=== PATIENT | female | born 1985 | race Caucasian/White ===

== ENCOUNTER 2016-09-30 08:00 | Outpatient (CLI) | payer OTHER | END 2016-09-30 23:59 | disposition home or self-care (01) | DX: Z36 Encounter for antenatal screening of mother (principal) ==

== ENCOUNTER 2016-10-16 07:30 | Outpatient (CLI) | payer OTHER | END 2016-10-16 07:31 | disposition home or self-care (01) | DX: Z36 Encounter for antenatal screening of mother (principal) ==

== ENCOUNTER 2016-11-09 07:37 | Outpatient (CLI) | payer OTHER ==
[2016-11-11 11:19] LABS: TEST RESULT REPORT (())
== END 2016-11-09 07:38 | disposition home or self-care (01) ==
LOC: LAB 07:37
PROVIDERS: ATTEND Obstetrics & Gynecology
DX: Z36 Encounter for antenatal screening of mother (principal)
CPT/HCPCS: 36415; 81599; 82105

== ENCOUNTER 2016-12-10 12:40 | Outpatient (CLI) | payer OTHER ==
--- NOTE | 2016-12-11 16:08 | Ultrasound Report ---
OB ULTRASOUND: 12/10/2016 CLINICAL INDICATION: anatomy. TECHNIQUE: Real-time scanning was performed with mortician supplies sales representative static images obtained. LAST MENSTRUAL PERIOD 07/25/2016 Clinical Age 19 weeks 5 days US Age 19 weeks 5 days EFW Hadlock 299 g EFW% Hadlock --- Heart Rate 130 bpm EDC 05/01/2017 US EDC 05/01/2017 BPD Hadlock 19 weeks 6 days; Mean mm 45.6 HC Hadlock 19 weeks 4 days; Mean mm 169.5 AC Hadlock 20 weeks 0 days; Mean mm 146.5 FL Hadlock 19 weeks 0 days; Mean mm 29.4 Presentation moving Placental Location posterior Cervical Length 3.7 cm Amniotic Fluid 13.4 cm FINDINGS: There is a single viable intrauterine gestation, in variable position. heart rate is 130 BPM. The placenta is posterior, without evidence of previa. Amniotic fluid volume is normal, with an RADHA of 13.4. By size, the fetus measures 19.7 weeks (19.7 weeks by LMP). The following anatomic structures were visualized and appear normal: The intracranial contents, including the ventricles and posterior fossa; the lips and orbits; the spine; the heart, including 4 chamber view and outflow tracts, and diaphragm; the abdominal contents, including the stomach, the bilateral kidneys, and urinary bladder, as well as a normal 3 vessel cord insertion; 4 limbs. No free fluid or adnexal lesion is appreciated. IMPRESSION: SINGLE VIABLE INTRAUTERINE GESTATION, WITH SIZE IN KEEPING WITH LMP DATING. NORMAL ANATOMIC SURVEY. MTDD
== END 2016-12-10 12:41 | disposition home or self-care (01) ==
LOC: DI 12:40
PROVIDERS: ATTEND Obstetrics & Gynecology
DX: Z36 Encounter for antenatal screening of mother (principal)
CPT/HCPCS: 76811

== ENCOUNTER 2017-01-13 15:01 | Outpatient (CLI) | payer OTHER ==
[2017-01-13 15:18] VITALS: BP 113/58
[2017-01-13] MEDS: LACTATED RINGERS 1,000 ML IV SCH ×2 (15:25→16:24)
== END 2017-01-13 17:15 | disposition home or self-care (01) ==
LOC: WFO 15:01 → OB 15:01 → WFO 17:15
PROVIDERS: ATTEND Obstetrics & Gynecology
DX: O21.0 Mild hyperemesis gravidarum (principal); Z3A.00 Weeks of gestation of pregnancy not specified
CPT/HCPCS: 96360; 96361; 99212; J7120

== ENCOUNTER 2017-01-23 08:50 | Outpatient (CLI) | payer OTHER ==
[2017-01-23 10:57] LABS: HCT - HEMATOCRIT 32.7 % (37.0-47.0); MEAN CORPUSCULAR HEMOGLOBIN 30.2 pg (27.0-31.0); MEAN CORPUSCULAR HGB CONC 33.5 g/dL (32.0-36.0); MEAN CORPUSCULAR VOLUME 90.1 fL (81.0-99.0); MEAN PLATELET VOLUME 7.9 fL (7.9-10.8); RED BLOOD COUNT 3.63 10^6/uL (4.20-5.40); RED CELL DISTRIBUTION WIDTH 12.5 % (12.0-15.0)
== END 2017-01-23 08:51 | disposition home or self-care (01) ==
LOC: LAB 08:50
PROVIDERS: ATTEND Obstetrics & Gynecology
DX: Z36 Encounter for antenatal screening of mother (principal)
CPT/HCPCS: 36415; 82950; 86850

== ENCOUNTER 2017-02-06 07:04 | Outpatient (CLI) | payer OTHER ==
[2017-02-06 07:55] LABS: GTT GLUCOSE,FASTING 91 mg/dL (70-100)
== END 2017-02-06 07:05 | disposition home or self-care (01) ==
LOC: LAB 07:04
PROVIDERS: ATTEND Obstetrics & Gynecology
DX: R73.02 Impaired glucose tolerance (oral) (principal)
CPT/HCPCS: 36415; 80050; 80061; 82951

== ENCOUNTER 2017-03-15 07:18 | Emergency (ER) | payer OTHER ==
[2017-03-15] MEDS ORDERED: SODIUM CHLORIDE 0.9% 1,000 ML IV ONE (07:28)
--- NOTE | 2017-03-15 07:40 | ED Physician Documentation ---
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 denies: Generalized weakness, Headache Endocrine: denies: Easy bruising / bleeding Immunocompromised: denies: Immunocompromised PD PAST MEDICAL HISTORY - Past Surgical History Past Surgical History: No - Present Medications Home Medications: Ambulatory Orders Medication Instructions Recorded Confirmed No Known Home Medications [No 10/29/14 10/29/14 Known Home Medications] - Allergies Allergies/Adverse Reactions: Allergies Allergy/AdvReac Type Severity Reaction Status Date / Time erythromycin base Allergy Unknown Verified 10/29/14 13:33 Penicillins Allergy Unknown Verified 10/29/14 13:33 - Social History Does the pt smoke?: No Smoking Status: Never smoker Does the pt drink ETOH?: No Does the pt have substance abuse?: No - Immunizations Immunizations are current?: No PD ED PE NORMAL - Vitals Vital signs reviewed: Yes (normal BP) - General General: Alert and oriented X 3 - HEENT HEENT: PERRL - Neck Neck: Supple, no meningeal sign - Cardiac Cardiac: RRR - Respiratory Respiratory: No respiratory distress, Clear bilaterally - Abdomen Abdomen: Soft, Non tender - Derm Derm: Normal color - Extremities Extremities: No deformity, No edema, No calf tenderness / cord - Neuro Neuro: Alert and oriented X 3, popcorn attendant 2-12 intact, No motor deficit, Normal speech - Psych Psych: Normal mood Results - Vitals Vitals: Vital Signs - 24 hr 03/15/17 07:20 Temperature 36.7 C Heart Rate 88 Respiratory 16 Rate Blood Pressure 126/77 O2 Saturation 100 Oxygen O2 Source Room air - EKG (time done) 0751 Rate: Rate (enter#) (97) Rhythm: NSR [place]: Normal Intervals: Normal CO QRS: Normal Ischemia: Normal ST segments - Labs Labs: Laboratory Tests 03/15/17 03/15/17 03/15/17 07:26 07:40 07:40 WBC 10.2 RBC 3.60 L Hgb 9.8 L Hct 29.3 L MCV 81.4 MCH 27.2 MCHC 33.5 RDW 13.2 Plt Count 266 MPV 8.8 Neut # 6.7 H Lymph # 2.4 [place] # 0.9 Eos # 0.1 Baso # 0.0 Absolute Nucleated RBC 0.00 Nucleated RBCs 0.0 Sodium 134 L Potassium 3.2 L Chloride 104 Carbon Dioxide 21 Anion Gap 9.0 BUN 7 Creatinine 0.5 Estimated GFR (MDRD) 142 Glucose 101 H POC Whole Bld Glucose 109 H Calcium 8.7 Total Bilirubin 0.3 AST 25 ALT 17 Alkaline Phosphatase 71 Total Protein 6.2 L Albumin 2.7 L Globulin 3.5 Albumin/Globulin Ratio 0.8 L Lipase 43 Urine Color Urine Clarity Urine pH Ur Specific [place] Urine Protein Urine Glucose (UA) Urine Ketones Urine Occult Blood Urine Nitrite Urine Bilirubin Urine Urobilinogen Ur Leukocyte Esterase Urine RBC Urine WBC Ur Squamous Epith Cells Urine Bacteria Ur Microscopic Review Urine Culture Comments 03/15/17 08:45 WBC RBC Hgb Hct MCV MCH MCHC RDW Plt Count MPV Neut # Lymph # [place] # Eos # Baso # Absolute Nucleated RBC Nucleated RBCs Sodium Potassium Chloride Carbon Dioxide Anion Gap BUN Creatinine Estimated GFR (MDRD) Glucose POC Whole Bld Glucose Calcium Total Bilirubin AST ALT Alkaline Phosphatase Total Protein Albumin Globulin Albumin/Globulin Ratio Lipase Urine Color YELLOW Urine Clarity HAZY Urine pH 7.5 Ur Specific [place] 1.020 Urine Protein TRACE Urine Glucose (UA) NEGATIVE Urine Ketones NEGATIVE Urine Occult Blood NEGATIVE Urine Nitrite NEGATIVE Urine Bilirubin NEGATIVE Urine Urobilinogen 0.2 (NORMAL) Ur Leukocyte Esterase NEGATIVE Urine RBC 0-5 Urine WBC 0-3 Ur Squamous Epith Cells MANY Squamous H Urine Bacteria Many H Ur Microscopic Review INDICATED Urine Culture Comments NOT INDICATED PD MEDICAL DECISION MAKING - ED course ED course: NSR on EKG and tele anemia wnl for third trimester slightly low k and Na repleted but unlikely to cause sx suspect pt was orthostatic after being on her feet for work all night with volume shifts of will rehydrate and if feels better rogers to dc FHR 148 no abd pain ctx bleeding will d/w OB to see if wants pt to go to L&D for eval as well Departure - Departure Disposition: 01 Home, Self Care Clinical Impression: Near syncope, Third trimester Condition: Good Instructions: ED Near Syncope Unkn Follow-Up: Abhi Hanson MD [Provider Admit Priv/Credential] - Comments: Your EKG and heart monitor show a normal rhythm Your labs were fine except for anemia consistent with third trimester and a slightly low potassium and sodium which we replaced. I do not think you have a urine infection but we will call you if the culture is positive I suspect you felt faint due to fluid shift of combined with being on your feel all night Given the reassuring work up, I think it is fine for you to go home. Please rest and drink plenty of fluids Follow up with your OB early next week. Return to the ER if worse
[2017-03-15 07:52] LABS: BASOPHILS % (AUTO) 0.3 %; EOSINOPHILS # (AUTO) 0.1 10^3/uL (0.0-0.7); EOSINOPHILS % (AUTO) 0.9 %; HCT - HEMATOCRIT 29.3 % (37.0-47.0); HGB - HEMOGLOBIN 9.8 g/dL (12.0-16.0); LYMPHOCYTES # (AUTO) 2.4 10^3/uL (1.5-3.5); LYMPHOCYTES % (AUTO) 23.9 %; MEAN CORPUSCULAR HEMOGLOBIN 27.2 pg (27.0-31.0); MEAN CORPUSCULAR HGB CONC 33.5 g/dL (32.0-36.0); MEAN CORPUSCULAR VOLUME 81.4 fL (81.0-99.0); MEAN PLATELET VOLUME 8.8 fL (7.9-10.8); MONOCYTES # (AUTO) 0.9 10^3/uL (0.0-1.0); MONOCYTES % (AUTO) 8.9 %; NEUTROPHILS # (AUTO) 6.7 10^3/uL (1.5-6.6); RED CELL DISTRIBUTION WIDTH 13.2 % (12.0-15.0); UNCORRECTED WHITE BLOOD COUNT 10.2 x10^3/uL; WHITE BLOOD COUNT 10.2 x10^3/uL (4.8-10.8)
[2017-03-15 08:08] LABS: ALBUMIN/GLOBULIN RATIO 0.8 (1.0-2.2); BILIRUBIN,TOTAL 0.3 mg/dL (0.2-1.0); CALCIUM 8.7 mg/dL (8.5-10.3); CREATININE 0.5 mg/dL (0.4-1.0); POTASSIUM 3.2 mmol/L (3.5-5.0); TOTAL PROTEIN 6.2 g/dL (6.7-8.2)
[2017-03-15 08:55] LABS: BILIRUBIN,URINE NEGATIVE (NEGATIVE); PH,URINE 7.5 PH (5.0-7.5)
[2017-03-15 08:57] LABS: UA w/ MICROSCOPIC CHARGE YES
[2017-03-15 09:05] LABS: UR CULTURE IF IND NOT INDICATED; WBC,URINE 0-3 /HPF (0-5)
[2017-03-15] MEDS ORDERED: POTASSIUM BICARB 25 MEQ TABLET PO STA (09:10)
[2017-03-15] MEDS ORDERED: POTASSIUM BICARB 25 MEQ TABLET PO ONE (09:17)
[2017-03-15 09:39] VITALS: BP 122/79
== END 2017-03-15 09:39 | disposition home or self-care (01) ==
LOC: ED 07:18
DX: O99.89 Other specified diseases and conditions complicating pregnancy, childbirth and the puerperium (principal); R55 Syncope and collapse; O99.013 Anemia complicating pregnancy, third trimester; D64.9 Anemia, unspecified; O99.283 Endocrine, nutritional and metabolic diseases complicating pregnancy, third trimester; E87.6 Hypokalemia; E87.1 Hypo-osmolality and hyponatremia; Z3A.34 34 weeks gestation of pregnancy
CPT/HCPCS: 36415; 80053; 81001; 83690; 85025; 93005; 96360; 99284; A9270; 81003; 87086

== ENCOUNTER 2017-03-31 16:02 | Outpatient (CLI) | payer OTHER | END 2017-03-31 16:03 | disposition home or self-care (01) | LOC: LAB.R 16:02 | PROVIDERS: ATTEND Obstetrics & Gynecology | DX: Z36.9 Encounter for antenatal screening, unspecified (principal) | CPT/HCPCS: 87081 ==

== ENCOUNTER 2017-04-08 14:39 | Outpatient (CLI) | payer OTHER ==
--- NOTE | 2017-04-09 10:12 | Ultrasound Report ---
OB FOLLOWUP: 04/08/2017 CLINICAL INDICATION: Size larger than dates. COMPARISON: 12/10/2016. TECHNIQUE: Real-time scanning was performed with member service representative static images obtained. LAST MENSTRUAL PERIOD 07/25/2016 Clinical Age 36 weeks 5 days US Age 38 weeks 0 days EFW Hadlock 3660 grams EFW% Hadlock 90% Heart Rate 135 bpm EDC 05/01/2017 US EDC 04/22/2017 BPD Hadlock 38 weeks 6 days; Mean mm 95.3 HC Hadlock OOR; Mean mm 360.0 AC Hadlock 39 weeks 5 days; Mean mm 358.4 FL Hadlock 35 weeks 2 days; Mean mm 68.8 Presentation cephalic Placental Location posterior Cervical Length 4 cm Amniotic Fluid 27.4 cm FINDINGS: There is a single viable intrauterine gestation, in cephalic presentation. heart rate is 135 BPM. The placenta is posterior, without evidence of previa. Amniotic fluid volume is elevated, with an RADHA of 27.4 ( 98th percentile). By size, the fetus measures 38 weeks 0 days, but the head circumference is out of range for software, measuring 36 cm. Estimated weight by Hadlock method is 3660 grams, 90th percentile. The gestational age by LMP is 36 weeks 5 days. No free fluid or adnexal lesion is appreciated. IMPRESSION: SINGLE VIABLE INTRAUTERINE GESTATION. BY SIZE, THE FETUS DATES LARGER THAN 38 WEEKS 0 DAYS, THE HEAD CIRCUMFERENCE WAS OUT OF RANGE FOR THE SOFTWARE PACKAGE. POLYHYDRAMNIOS. MTDD
== END 2017-04-08 14:40 | disposition home or self-care (01) ==
LOC: DI 14:39
PROVIDERS: ATTEND Obstetrics & Gynecology
DX: Z36.2 Encounter for other antenatal screening follow-up (principal)
CPT/HCPCS: 76816

== ENCOUNTER 2017-04-11 07:37 | Outpatient (CLI) | payer OTHER ==
[2017-04-11 07:52] VITALS: BP 123/70
== END 2017-04-11 08:26 | disposition home or self-care (01) ==
LOC: WFO 07:37 → FBP 07:38 → WFO 08:26
PROVIDERS: ATTEND Obstetrics & Gynecology
DX: O40.3XX0 Polyhydramnios, third trimester, not applicable or unspecified (principal); Z3A.37 37 weeks gestation of pregnancy
CPT/HCPCS: 59025

== ENCOUNTER 2017-04-21 11:13 | Outpatient (CLI) | payer OTHER ==
[2017-04-21 11:57] LABS: BASOPHILS % (AUTO) 0.3 %; EOSINOPHILS # (AUTO) 0.1 10^3/uL (0.0-0.7); EOSINOPHILS % (AUTO) 0.6 %; HCT - HEMATOCRIT 28.6 % (37.0-47.0); HGB - HEMOGLOBIN 9.3 g/dL (12.0-16.0); LYMPHOCYTES # (AUTO) 2.7 10^3/uL (1.5-3.5); LYMPHOCYTES % (AUTO) 28.1 %; MEAN CORPUSCULAR HEMOGLOBIN 24.5 pg (27.0-31.0); MEAN CORPUSCULAR HGB CONC 32.5 g/dL (32.0-36.0); MEAN CORPUSCULAR VOLUME 75.4 fL (81.0-99.0); MONOCYTES # (AUTO) 0.8 10^3/uL (0.0-1.0); NEUTROPHILS # (AUTO) 6.2 10^3/uL (1.5-6.6); RED CELL DISTRIBUTION WIDTH 15.6 % (12.0-15.0); UNCORRECTED WHITE BLOOD COUNT 9.8 x10^3/uL; WHITE BLOOD COUNT 9.8 x10^3/uL (4.8-10.8)
== END 2017-04-21 11:14 | disposition home or self-care (01) ==
LOC: LAB 11:13
PROVIDERS: ATTEND Obstetrics & Gynecology
DX: Z01.812 Encounter for preprocedural laboratory examination (principal); O34.219 Maternal care for unspecified type scar from previous cesarean delivery; Z3A.00 Weeks of gestation of pregnancy not specified
CPT/HCPCS: 36415; 85025; 86850; 86900; 86901

== ENCOUNTER 2017-04-22 05:25 | Inpatient (IN) | payer OTHER ==
--- NOTE | 2017-04-21 17:47 | PREOP HISTORY & PHYSICAL ---
DATE OF ADMISSION/SURGERY: 04/22/2017 IDENTIFICATION: The patient is a 31-year-old G5, P2, SAB 2 female, whose due date is noted to be 29 April 2017. This was confirmed with a 9-week ultrasound. HISTORY OF PRESENT ILLNESS: The patient presents preop for a repeat section. She has had 2 previous sections performed in the past and is requesting a third. She is also requesting tubal ligation at this time. I have discussed the operations of Filshie clips versus salpingectomy. At this particular time, we are planning to do a salpingectomy. Her course has been unremarkable. She has had some difficulty with morning sickness, as well as some heartburn which has been treated with Zofran, as well as Zantac. She notes good motion. Denies contractions or rupture of membranes at this time. Her labs show her to be O-positive. She is rubella immune. RPR, hepatitis B, and HIV are negative. Her 50-gram Glucola was elevated at 154. However, her 3-hour GTT was noted to be normal. PAST MEDICAL HISTORY: Positive for having had hepatitis A and B in the past. SURGICAL HISTORY: Positive for 2 sections. ALLERGIES: 1. ERYTHROMYCIN. 2. PENICILLIN. CURRENT MEDICATIONS: vitamin tablets. HABITS: The patient denies the use of alcohol, tobacco, or street or addictive drugs. SOCIAL HISTORY: The patient is and lives with her spouse, as well as children. 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 FAMILY HISTORY: Positive for lung cancer, diabetes, depression, hypertension, and rheumatoid arthritis, as well as CVA. PHYSICAL EXAMINATION: GENERAL: The patient is a well-developed, well-nourished white female. At this time, she is in no acute distress. VITAL SIGNS: Her blood pressure on her appointment today was noted to be 116/ 80. She has had a 23-pound weight gain during the . HEENT: Pupils are equal and round. Extraocular muscles are intact. NECK: Thyroid is not palpably enlarged. HEART: Regular rate and rhythm, without murmurs. LUNGS: Carbone are clear, without rales or wheezes. ABDOMEN: Fundal height was noted to be 42 cm. EXTREMITIES: She has no evidence of any cyanosis. IMPRESSION: 1. A 31-year-old G5, P2 female, currently at term. 2. Previous hepatitis A and B. 3. Previous section x2. 4. Undesired fertility. PLAN: We will perform a repeat section. The risks and benefits have been explained to the patient including those, but not limited to, bleeding, infection, and injury to pelvic organs, which include the uterus, tubes, ovaries , bowel, bladder, and ureters. She is aware of the potential for DVT and PE, as well as postoperative adhesions, which could cause pain, bowel obstruction, and infertility. At this particular time, she is also requesting a tubal ligation. She is aware of a failure rate of roughly 3 to 10/999. She was also informed that she may change her mind at any time. JOB #: [id number] EXT JOB #:[id number] [id number]
[2017-04-22] MEDS ORDERED: LACTATED RINGERS 1,000 ML IV ONE ×4 (05:56→08:30)
[2017-04-22] MEDS ORDERED: SODIUM CHLORIDE FLUSH 0.9% 10 ML SYRINGE IVP ONE (05:57)
[2017-04-22] MEDS ORDERED: ceFAZolin 2 GM/50 ML 2 GM/50 ML BAG IV SCH (06:45)
[2017-04-22] MEDS ORDERED: ONDANSETRON 4 MG/2 ML VIAL IVP PRN (06:48)
[2017-04-22] MEDS ORDERED: fentaNYL 100 MCG/2 ML VIAL IVP ONE (08:50)
[2017-04-22] MEDS ORDERED: ePHEDrine 50 MG/ML VIAL IVP ONE (08:50)
[2017-04-22] MEDS ORDERED: OXYTOCIN 10 UNIT/ML VIAL IV ONE (08:50)
[2017-04-22] MEDS ORDERED: KETOROLAC 30 MG/ML VIAL IVP ONE (08:50)
[2017-04-22] MEDS ORDERED: ceFAZolin 2 GM/50 ML BAG IV ONE (08:50)
[2017-04-22] MEDS ORDERED: diphenhydrAMINE 25 MG CAPSULE PO PRN (09:19)
[2017-04-22] MEDS ORDERED: oxyCODONE 5 MG TABLET PO PRN (09:19)
[2017-04-22] MEDS ORDERED: ONDANSETRON ODT 4 MG TABLET TL PRN (09:19)
[2017-04-22] MEDS ORDERED: SODIUM CHLORIDE FLUSH 0.9% 10 ML SYRINGE IVP PRN (09:19)
--- NOTE | 2017-04-22 09:32 | OPERATIVE REPORT ---
Operative Report - General Admit Date: 04/22/17 Procedure Date: 04/22/17 Planned Procedure: Repeat LTC/S Pre-Op Diagnosis: 39 weeks, undesired fertility Procedure Performed: 1. Repeat LTC/S 2. bilateral salpingectomy Post Op Diagnosis: Same - Procedure Note Primary Surgeon: Abhi Hanson MD, FACOG Secondary Surgeon: Jess Sanchez DO, FACOG Anesthesia Provider: Costa Cowan MD Anesthesia Technique: Epidural Pathology: Bilateral Tubes Drain/Tube Type: Other (Wound Vac) Complications: Pre OP Anemia
[2017-04-22] MEDS ORDERED: OXYTOCIN/SODIUM CHLORIDE 250 ML IV ONE (09:45)
[2017-04-22] MEDS ORDERED: LACTATED RINGERS 1,000 ML IV SCH (10:00)
[2017-04-22] MEDS: ACETAMINOPHEN 500 MG TABLET PO SCH ×2 (10:13→17:40)
--- NOTE | 2017-04-22 10:20 | OPERATIVE REPORT ---
DATE OF SURGERY: 04/22/2017 00:00:00 PREOPERATIVE DIAGNOSES 1. 39 weeks' gestation. 2. Previous section. 3. Undesired fertility. POSTOPERATIVE DIAGNOSES 1. 39 weeks' gestation. 2. Previous section. 3. Undesired fertility. NAME OF PROCEDURE: Repeat low transverse section with bilateral salpingectomy. SURGEON: Abhi Hanson MD. FUSE COILER: Dr. Jess Sanchez. ANESTHESIA: Costa Cowan MD, spinal anesthetic. ESTIMATED BLOOD LOSS: 600 mL. FINDINGS: Normal uterus, tubes, ovaries. PROCEDURE: Following adequate spinal anesthesia, the patient was placed in the supine position with a roll under the right hip. At this point, she was prepped and draped in the usual fashion. A Valencia catheter was placed under sterile conditions. A timeout was then performed, of which any concerns were identified , which include those of preoperative anemia. This procedure was then commenced at this time, following checking to make sure that good anesthetic level was obtained. A Pfannenstiel incision was carried down through the old scar and that is very light. It was carried down to the fascia. The fascia was incised transversely. Then, using both blunt and sharp dissection, it was freed from the rectus abdominis. The rectus was then split along the midline, and the peritoneum was entered high. Care was taken to avoid any injury to bowel or bladder at this time. The incision was carried inferior utilizing Metzenbaum scissors. A bladder retractor was placed, following which a bladder flap was developed using Metzenbaum scissors and blunt dissection. A low transverse incision was carried out through the lower portion of the uterus. This was carried down to the membranes. The membranes were then pierced and copious amounts of clear amniotic fluid was encountered. The incision was carried laterally using bandage scissors. Care was taken to avoid injury to the infant. Finger spread technique was used at the ends of the incision. The head of the was lifted out of the pelvis and delivered. The oropharynx was bulb suctioned. The remainder of the infant was delivered without difficulty. The cord was doubly clamped, divided, and the infant was given to the director shopper marketing who was standing by. Cord blood samples were obtained. Following this, the placenta was manually removed. The uterus was exteriorized, wrapped in a moist lap, and cleansed in the internal portion with a dry lap. The incision was closed using a running locking suture of #0 Vicryl with an imbricating layer of #0 Vicryl. Good hemostasis was observed. At this point, the blood loss was tallied, noted to be 600 mL. There was a copious amount of amniotic fluid, which was also encountered. The cul-de-sac was irrigated and no further bleeding was noted. The right fallopian tube was grasped at the fimbriated end and then a LigaSure was used to transect the mesosalpinx. Care was taken to place this as close to the tube as possible to avoid any injury to the ovarian vessels. This was carried all the way to the cornu and the entire fallopian tube was excised. This was inspected for bleeding. None was noted. The right fallopian tube was grasped at the fimbriated end, then once again the LigaSure was used to transect the mesosalpinx. Once again, care was taken to avoid any injury to the ovarian vessels. This was carried down all the way to the cornu of the uterus, at which time the fallopian tube was removed in its entirety. Both incision sites were inspected, and no bleeding was noted. The uterus was then delivered back in the abdominal cavity and once again there was no evidence of any bleeding. The cul-de-sacs were irrigated and no further bleeding was noted. The bladder flap was inspected for bleeding, none was noted. At this point, the patient was having some difficulty with adequate anesthesia, so the peritoneum was closed utilizing 2-0 Vicryl. The rectus was reapproximated with 2-0 Vicryl. The rectus muscles were inspected, no bleeding was noted, so the fascia was closed using looped PDS. Subcutaneous tissue was irrigated, and electrocautery was used for hemostasis. The subcutaneous tissue was closed utilizing 2-0 Vicryl. The incision itself was closed using Monocryl subcuticular with Mastisol and Steri-Strips being applied. The incision was noted to have some oozing, so at this point, it was decided to utilize a wound VAC. This was applied without difficulty. The uterus was expressed at the end of the procedure. The patient tolerated the procedure well and was taken to recovery in stable condition. Sponge and needle counts were correct. JOB #: [id number] EXT JOB #:[id number] LG
[2017-04-22] MEDS ORDERED: FERRIC GLUCONATE 125 MG in SODIUM CHLORIDE 0.9% 100ML 100 ML IV SCH (10:30)
[2017-04-22] MEDS: IBUPROFEN 800 MG TABLET PO SCH ×2 (10:33→16:16)
[2017-04-22] MEDS: oxyCODONE 5 MG TABLET PO PRN ×3 (12:53→21:48)
[2017-04-22] MEDS: KETOROLAC 30 MG/ML VIAL IV SCH ×2 (14:20→20:26)
[2017-04-22] MEDS: SIMETHICONE CHEW 80 MG TABLET PO SCH ×2 (14:41→21:49)
[2017-04-22] MEDS: SODIUM CHLORIDE FLUSH 0.9% 10 ML SYRINGE IVP SCH ×2 (14:43→20:27)
[2017-04-22 17:59] LABS: BASOPHILS % (AUTO) 0.3 %; EOSINOPHILS % (AUTO) 0.1 %; HCT - HEMATOCRIT 28.2 % (37.0-47.0); HGB - HEMOGLOBIN 8.8 g/dL (12.0-16.0); LYMPHOCYTES # (AUTO) 2.2 10^3/uL (1.5-3.5); LYMPHOCYTES % (AUTO) 19.5 %; MEAN CORPUSCULAR HEMOGLOBIN 23.9 pg (27.0-31.0); MEAN CORPUSCULAR HGB CONC 31.2 g/dL (32.0-36.0); MEAN CORPUSCULAR VOLUME 76.5 fL (81.0-99.0); MEAN PLATELET VOLUME 8.7 fL (7.9-10.8); MONOCYTES # (AUTO) 0.9 10^3/uL (0.0-1.0); NEUTROPHILS # (AUTO) 8.2 10^3/uL (1.5-6.6); NEUTROPHILS % (AUTO) 72.1 %; RED BLOOD COUNT 3.68 10^6/uL (4.20-5.40); RED CELL DISTRIBUTION WIDTH 15.6 % (12.0-15.0); UNCORRECTED WHITE BLOOD COUNT 11.4 x10^3/uL; WHITE BLOOD COUNT 11.4 x10^3/uL (4.8-10.8)
[2017-04-22] MEDS: DOCUSATE SODIUM 100 MG CAPSULE PO SCH (20:27)
[2017-04-23] MEDS: oxyCODONE 5 MG TABLET PO PRN ×6 (01:30→22:01)
[2017-04-23] MEDS: ACETAMINOPHEN 500 MG TABLET PO SCH ×3 (01:31→20:47)
[2017-04-23] MEDS: KETOROLAC 30 MG/ML VIAL IV SCH ×2 (02:59→10:01)
[2017-04-23] MEDS: SIMETHICONE CHEW 80 MG TABLET PO SCH ×3 (05:56→20:47)
--- NOTE | 2017-04-23 08:20 | PROVIDER PROGRESS NOTE ---
Subjective - General Admit Date: 04/22/17 Procedure Date: 04/22/17 Post Op Days: 1 Procedure Performed: RLTC/S with bilateral salpingectomy - Review of Systems Wound/Incisions: positive: Dressing dry and intact, No drainage Drain Type: Wound Vac General: positive: No symptoms. negative: Fever Pulmonary: positive: No symptoms Cardiovascular: positive: No symptoms Gastrointestinal: positive: No symptoms, Flatus Objective - Patient Data Reviewed Vital Signs: Yes Vital Signs: Vital Signs x48h Temp Pulse Resp BP Pulse Ox 04/23/17 05:18 36.7 C 73 18 109/66 95 04/23/17 01:41 36.5 C 80 16 108/67 96 Weight: Weight 04/21/17 04/22/17 04/23/17 23:59 23:59 23:59 Weight (kg) 83.461 kg Intake & Output: Intake and Output Totals x24h 04/21/17 04/22/17 04/23/17 23:59 23:59 23:59 Intake Total 2660 900 Output Total 1625 725 Balance 1035 175 - Lab Results Lab Results: 04/22/17 17:52 Other Lab Results: Lab Results x24hrs 04/22/17 04/21/17 Range/Units 17:52 11:45 WBC 11.4 H (4.8-10.8) x10^3/uL RBC 3.68 L (4.20-5.40) 10^6/uL Hgb 8.8 L (12.0-16.0) g/dL Hct 28.2 L (37.0-47.0) % MCV 76.5 L (81.0-99.0) fL MCH 23.9 L (27.0-31.0) pg MCHC 31.2 L (32.0-36.0) g/dL RDW 15.6 H (12.0-15.0) % Plt Count 222 (130-450) 10^3/uL MPV 8.7 (7.9-10.8) fL Neut # 8.2 H (1.5-6.6) 10^3/uL Lymph # 2.2 (1.5-3.5) 10^3/uL [place] # 0.9 (0.0-1.0) 10^3/uL Eos # 0.0 (0.0-0.7) 10^3/uL Baso # 0.0 (0.0-0.1) 10^3/uL Absolute Nucleated RBC 0.00 x10^3/uL Nucleated RBC % 0.0 /100WBC Blood Type Cancelled Antibody Screen Cancelled Crossmatch IS Only See Detail - Current Medications Current Medications: Current Medications Generic Name Dose Route Start Last Admin Trade Name Freq PRN Reason Stop Dose Admin Acetaminophen 1,000 mg 04/22/17 10:00 04/23/17 01:31 Tylenol PO 1,000 mg Q8H TRIPP Administration Docusate Sodium 100 mg 04/22/17 21:00 04/22/17 20:27 Colace 100mg Capsule PO 100 mg BID TRIPP Administration Lactated Ringer's 1,000 mls @ 100 mls/hr 04/22/17 10:00 04/22/17 10:34 Lr IV Not Given .Q10H TRIPP Ibuprofen 800 mg 04/22/17 10:00 04/22/17 16:16 Motrin PO Not Given Q6H TRIPP Ketorolac Tromethamine 30 mg 04/23/17 03:00 04/23/17 02:59 Toradol Inj IV 04/23/17 09:01 30 mg Q6H TRIPP Administration Ondansetron HCl 4 mg 04/22/17 06:48 04/22/17 06:58 Zofran Inj IVP 4 mg Q6HR PRN Administration Nausea / Vomiting Oxycodone HCl 10 mg 04/22/17 12:49 04/23/17 05:57 Roxicodone PO 5 mg Q4HR PRN Administration PAIN Simethicone 80 mg 04/22/17 14:00 04/23/17 05:56 Mylicon PO 80 mg TID TRIPP Administration Sodium Chloride 10 ml 04/22/17 09:19 04/23/17 03:00 Normal Saline Flush 0.9% IVP 10 ml PRN PRN Administration NEEDED PER PROVIDER ORDERS Sodium Chloride 10 ml 04/22/17 14:00 04/22/17 20:27 Normal Saline Flush 0.9% IVP 10 ml Q8HR TRIPP Administration - Physical Exam Wound/Incisions: positive: Dressing dry and intact, No drainage General Appearance: positive: No acute distress (Pain is 0/10, with Motion 7/ 10. pt notes good pain control), Alert Respiratory: positive: Chest non-tender, No respiratory distress, Breath sounds nml Cardiovascular: positive: Regular rate & rhythm, No murmur Abdomen: positive: Non-tender, Nml bowel sounds, Mass (U-1) Back: negative: CVA tenderness (R), CVA tenderness (L) Extremities: positive: Non-tender. negative: Calf tenderness, Mario's sign/ cords Neurologic/Psychiatric: positive: Oriented x3 Impression/Plan - Problem List Problem List: doing well anticipate discharge tomorrow.
[2017-04-23] MEDS: SODIUM CHLORIDE FLUSH 0.9% 10 ML SYRINGE IVP SCH (10:02)
[2017-04-23] MEDS: DOCUSATE SODIUM 100 MG CAPSULE PO SCH ×2 (10:05→20:47)
[2017-04-23] MEDS: IBUPROFEN 800 MG TABLET PO SCH ×3 (16:22→22:02)
[2017-04-24] MEDS: oxyCODONE 5 MG TABLET PO PRN ×3 (02:22→11:24)
[2017-04-24] MEDS: IBUPROFEN 800 MG TABLET PO SCH ×2 (05:43→11:24)
[2017-04-24] MEDS: ACETAMINOPHEN 500 MG TABLET PO SCH (05:43)
[2017-04-24 09:12] VITALS: BP 117/67
[2017-04-24] MEDS: DOCUSATE SODIUM 100 MG CAPSULE PO SCH (09:15)
[2017-04-24] MEDS: SIMETHICONE CHEW 80 MG TABLET PO SCH (09:15)
--- NOTE | 2017-04-24 10:10 | PROVIDER PROGRESS NOTE ---
Subjective - General Admit Date: 04/22/17 Procedure Date: 04/22/17 Post Op Days: 2 Procedure Performed: RLTC/S with bilateral salpingectomy - Review of Systems Wound/Incisions: positive: Dressing dry and intact, No drainage Drain Type: Wound Vac General: positive: No symptoms. negative: Fever Pulmonary: positive: No symptoms (Pain 0-6/10. Pt notes good pain control. Flatus, voiding, locia resolving, milk comming in.) Cardiovascular: positive: No symptoms Gastrointestinal: positive: No symptoms, Flatus. negative: Nausea, Vomiting Genitourinary: positive: No symptoms Psychiatric: positive: No symptoms Objective - Patient Data Reviewed Vital Signs: Yes Vital Signs: Vital Signs x48h Temp Pulse Resp BP Pulse Ox 04/24/17 09:11 36.9 C 72 14 117/67 98 Weight: Weight 04/22/17 04/23/17 04/24/17 23:59 23:59 23:59 Weight (kg) 83.461 kg Intake & Output: Intake and Output Totals x24h 04/22/17 04/23/17 04/24/17 23:59 23:59 23:59 Intake Total 2660 1750 400 Output Total 1625 1075 Balance 1035 675 400 - Lab Results Lab Results: 04/22/17 17:52 - Current Medications Current Medications: Current Medications Generic Name Dose Route Start Last Admin Trade Name Freq PRN Reason Stop Dose Admin Acetaminophen 1,000 mg 04/22/17 10:00 04/24/17 05:43 Tylenol PO 1,000 mg Q8H TRIPP Administration Docusate Sodium 100 mg 04/22/17 21:00 04/24/17 09:15 Colace 100mg Capsule PO 100 mg BID TRIPP Administration Lactated Ringer's 1,000 mls @ 100 mls/hr 04/22/17 10:00 04/22/17 10:34 Lr IV Not Given .Q10H TRIPP Ibuprofen 800 mg 04/22/17 10:00 04/24/17 05:43 Motrin PO 800 mg Q6H TRIPP Administration Ondansetron HCl 4 mg 04/22/17 06:48 04/22/17 06:58 Zofran Inj IVP 4 mg Q6HR PRN Administration Nausea / Vomiting Oxycodone HCl 10 mg 04/22/17 12:49 04/24/17 05:43 Roxicodone PO 10 mg Q4HR PRN Administration PAIN Simethicone 80 mg 04/22/17 14:00 04/24/17 09:15 Mylicon PO 80 mg TID TRIPP Administration Sodium Chloride 10 ml 04/22/17 09:19 04/23/17 03:00 Normal Saline Flush 0.9% IVP 10 ml PRN PRN Administration NEEDED PER PROVIDER ORDERS Sodium Chloride 10 ml 04/22/17 14:00 04/23/17 10:02 Normal Saline Flush 0.9% IVP 10 ml Q8HR TRIPP Administration - Physical Exam Wound/Incisions: positive: Dressing dry and intact (Wound Vac) General Appearance: positive: No acute distress, Alert Respiratory: positive: Chest non-tender, No respiratory distress, Breath sounds nml Cardiovascular: positive: Regular rate & rhythm, No murmur Abdomen: positive: Non-tender, Nml bowel sounds, Mass (U-2) Back: negative: CVA tenderness (R), CVA tenderness (L) Skin: positive: Color nml, No rash, Warm, Dry Extremities: negative: Calf tenderness, Mario's sign/cords Neurologic/Psychiatric: positive: Oriented x3 Impression/Plan - Problem List Problem List: Progressing well Discharge to [facility] Discharge med: Oxycodone 5 mg ,#25 Mort[place] 800 mg Colace 100 mg Home supply: [employer]
--- NOTE | 2017-04-24 10:24 | Discharge Plan ---
Discharge Plan Disposition: 01 Home, Self Care Condition: Good Diet: Regular Activity Restrictions: Pelvic rest 6 weeks Shower Restrictions: No Driving Restrictions: Yes (While taiking Oxycodone) No Smoking: If you smoke, Please STOP! Call for help. Follow-up with: Joann Barnard PA-C [Primary Care Provider] -
--- NOTE | 2017-04-24 16:08 | DISCHARGE SUMMARY ---
DATE OF ADMISSION: 04/22/2017 DATE OF DISCHARGE: 04/24/2017 ADMITTING DIAGNOSES 1. 39 weeks. 2. Previous section x3. 3. Undesired fertility. DISCHARGE DIAGNOSES 1. 39 weeks. 2. Previous section x3. 3. Undesired fertility. PROCEDURE: Repeat low transverse section with bilateral salpingectomy. PRESENTING HISTORY: The patient is a 31-year-old. She is 5, para 2, AB 2 female whose due connor e was noted to be 04/29. This was confirmed with 9-week ultrasound. Her course was unremark able. She had previous 2 sections, thus requested a repeat section. She requested t ubal sterilization. Her laboratories showed her to be positive rubella immune, 50 gram Glucola was no javan to be elevated, but she had normal GTT. LABORATORY: Preoperative, her hemoglobin was noted to be 9.3, hematocrit was 28.6. Post-op, she fell to 8.8 and 28.2. Platelets remained within normal limits at 240-222. HOSPITAL COURSE: The patient was admitted, taken the operating room, at which time a repeat low trans verse section was accomplished, as well as bilateral salpingectomy. Intraoperatively, she lo st only 600 mL of blood. Her course has been unremarkable. She was given some IV iron. She did utilize oxycodone and Motrin for pain control. She is doing well at this time. She is passing fl atus, voiding, and breast feeding without difficulty. We are discharging to home with instructions to follow up in 1 week for removal of her wound VAC. DISCHARGE MEDICATIONS 1. Oxycodone #25. 2. Motrin #30. 3. Colace #30. 4. She is to take her own vitamins, as well as iron at home. She will be returning in 1 week, at which time we will remove her wound VAC. JOB #: [id number] EXT JOB #:[id number]
== END 2017-04-24 11:45 | disposition home or self-care (01) | DRG 766 ==
LOC: FBP 05:25
PROVIDERS: ADMIT Obstetrics & Gynecology; ATTEND Obstetrics & Gynecology
PROC: 0UT70ZZ Resection of Bilateral Fallopian Tubes, Open Approach (ICD-10-PCS; 2017-04-22)
PROC: 10D00Z1 Extraction of Products of Conception, Low, Open Approach (ICD-10-PCS; principal; 2017-04-22 07:30)
DX: O34.211 Maternal care for low transverse scar from previous cesarean delivery (principal); N85.8 Other specified noninflammatory disorders of uterus; Z3A.39 39 weeks gestation of pregnancy; Z37.0 Single live birth; Z30.2 Encounter for sterilization; Z86.19 Personal history of other infectious and parasitic diseases
CPT/HCPCS: 85025; 86850; 86900; 86901; 86920

== ENCOUNTER 2017-04-27 10:49 | Emergency (ER) | payer OTHER ==
[2017-04-27 10:58] VITALS: BP 123/76
--- NOTE | 2017-04-27 12:04 | ED Physician Documentation ---
History of Present Illness - Stated complaint Stated Complaint: CONSTIPATION/POST OP - Chief complaint Chief Complaint: Abd Pain - Additonal information Additional information: hx from pt 31 f G3 now P3 3 days s/p CS no BM since rectal pain tried MOM and enemas no fever, bleeding slowed, breast feeding Review of Systems Constitutional: denies: Fever GI: reports: Constipation : denies: Now EGA Endocrine: denies: Easy bruising / bleeding Immunocompromised: denies: Immunocompromised PD PAST MEDICAL HISTORY - Past Medical History Cardiovascular: None Respiratory: None Neuro: None Endocrine/Autoimmune: None GI: None INTERACTIVE MEDIA PROJECT MANAGER: None : None HEENT: None Psych: None Musculoskeletal: None Derm: None - Past Surgical History Past Surgical History: No /INTERACTIVE MEDIA PROJECT MANAGER: section - Present Medications Home Medications: Ambulatory Orders Medication Instructions Recorded Confirmed Acetaminophen [Tylenol] 1,000 mg PO Q6H PRN 04/27/17 04/27/17 oxyCODONE [Roxicodone] 5 mg PO Q4-6H 04/27/17 04/27/17 - Allergies Allergies/Adverse Reactions: Allergies Allergy/AdvReac Type Severity Reaction Status Date / Time erythromycin base Allergy Unknown Verified 04/27/17 10:58 Penicillins Allergy Unknown Verified 04/27/17 10:58 - Social History Does the pt smoke?: No Smoking Status: Never smoker Does the pt drink ETOH?: No Does the pt have substance abuse?: No - Immunizations Immunizations are current?: No PD ED PE NORMAL - Vitals Vital signs reviewed: Yes - Cardiac Cardiac: RRR - Respiratory Respiratory: No respiratory distress, Clear bilaterally - Abdomen Abdomen: Soft, Other (wound vac over section incision, abd NT , still a bit distended) - Rectal Rectal: Other (large amt hard stool in vault was manually disimpacted) - Derm Derm: Normal color - Psych Psych: Normal mood Results - Vitals Vitals: Vital Signs - 24 hr 04/27/17 10:56 Temperature 36.4 C L Heart Rate 76 Respiratory 16 Rate Blood Pressure 123/76 O2 Saturation 100 Oxygen O2 Source Room air PD MEDICAL DECISION MAKING - ED course ED course: manual disimpact and enema and large BM Departure - Departure Disposition: 01 Home, Self Care Clinical Impression: Constipation Qualifiers: Constipation type: unspecified constipation type Qualified Code(s): K59.00 - Constipation, unspecified Condition: Good Instructions: ED Constipation Follow-Up: Joann Barnard PA-C [Primary Care Provider] - Comments: Continue your stool softeners Try to minimize the narcotic pain medications because they cause constipation Drink plenty of fluids and eat food with lots of fruit and veggies
== END 2017-04-27 12:19 | disposition home or self-care (01) ==
LOC: ED 10:49
DX: K59.00 Constipation, unspecified (principal)
CPT/HCPCS: 99283; 99284

== ENCOUNTER 2019-06-09 08:13 | Outpatient (CLI) | payer OTHER ==
--- NOTE | 2019-06-09 09:52 | Mammography Report ---
Reason: BREAST PAIN RT Procedure Date: 06/09/2019 Accession Number: [id number] / [id number] Procedure: [facility]ANCK - Diagnostic Dig Bilat CPT Code: Final Report FULL RESULT: EXAM: Diagnostic Dig Bilat DATE: 06/09/2019 8:53 AM CLINICAL HISTORY: Diagnostic examination. Palpable lump in the upper outer quadrant of the right breast. TECHNIQUE: (B) - Bilateral CC and MLO views were obtained. Right ML views obtained. Focused right breast ultrasound is performed. COMPARISON: None PARENCHYMAL PATTERN: (D) - The breast(s) demonstrate(s) heterogeneously dense fibroglandular parenchyma. FINDINGS: No definite 2-D mammographic abnormality is identified in the region marked as palpable on mammogram. Seen on the cc projection and 3-D tomographic images only is question of a small tubular structure which was further investigated with ultrasound. Focused right breast ultrasound at the area of clinical concern reveals only normal breast tissue with no suspicious findings. A mammographic finding in the right lower inner breast 3.6 cm from the nipple which mammographically appears as a relatively well-circumscribed isodense 0.9 cm nodule C right cc 3-D image 14 is sonographically characterized as an ovoid hypoechoic somewhat heterogeneous nodule with focal hyperechoic dots measuring up to 0.9 cm at the 5:00 position approximately 2 cm from the nipple, suspicious. There are no suspicious masses, calcifications, or areas of distortion. IMPRESSION: Suspicious findings. BI-RADS category 4. RECOMMENDATION: (BIOPSY) - right breast 5:00 2 cm from the nipple ultrasound-guided core biopsy. BI-RADS CATEGORY: (4) - Suspicious. STANDARD QUALIFYING STATEMENTS: 1. This examination was not reviewed with the aid of Computer-Aided Detection (CAD). 2. A negative or benign imaging report should not preclude biopsy if clinically suspicious findings are present. 3. Dense breasts may obscure an underlying neoplasm. 4. This examination was reviewed with the aid of 3D breast imaging (tomosynthesis).
== END 2019-06-09 08:14 | disposition home or self-care (01) ==
LOC: DI 08:13
PROVIDERS: ATTEND Physician Assistant
DX: N64.4 Mastodynia (principal)
CPT/HCPCS: 76642; 77066

== ENCOUNTER 2019-07-14 12:05 | Outpatient (CLI) | payer BC, OTHER ==
[2019-07-14] MEDS ORDERED: BUFFERED LIDOCAINE 10 ML SYRINGE ONE (12:48)
[2019-07-14] MEDS ORDERED: BUFFERED LIDOCAINE 10 ML SYRINGE IU ONE (16:31)
--- NOTE | 2019-07-14 16:51 | Ultrasound Report ---
Reason: ABNORMAL MAMMOGRAM Procedure Date: 07/14/2019 Accession Number: [id number] / [id number] Procedure: US - Biopsy Breast Core CPT Code: Final Report FULL RESULT: E PROCEDURE: Ultrasound-guided needle biopsy right breast mass. CLINICAL DATA: Targeted mass measuring 0.7 cm with smooth margins in the 5 o'clock axis of the right breast. Informed consent was obtained. Using standard aseptic technique, both 1% buffered lidocaine was injected into the right breast for local anesthesia. A small rita was made in the skin with a #11 blade. A 12-gauge [employer] vacuum-assisted device was used to obtain 4 specimens. A specialized biopsy marker clip was placed into the biopsy cavity under ultrasound guidance. The patient was taken to separate mammography machine and a two-view digital mammography was performed to verify the clip placement and any complications. The mammography showed concordant clip position and expected postprocedural changes. The wound was dressed and ice applied. The patient was observed for approximately 15 minutes, then was discharged from diagnostic imaging Department in good condition following instructions on wound care and obtaining biopsy results. The patient is scheduled to receive the biopsy results from the referring physician. The tissue was sent for histologic analysis. IMPRESSION: Ultrasound-guided biopsy of the right breast. AN ADDENDUM WILL BE MADE TO THIS REPORT WHEN PATHOLOGY IS REVIEWED TO ESTABLISH CONCORDANCE.
== END 2019-07-14 12:06 | disposition home or self-care (01) ==
LOC: DI 12:05
PROVIDERS: ATTEND Physician Assistant
DX: D24.1 Benign neoplasm of right breast (principal)
CPT/HCPCS: 19083

== ENCOUNTER 2019-07-26 11:13 | Outpatient (CLI) | payer BC, OTHER ==
[2019-07-26 18:59] LABS: BASOPHILS % (AUTO) 0.4 %; EOSINOPHILS # (AUTO) 0.1 10^3/uL (0.0-0.7); EOSINOPHILS % (AUTO) 1.1 %; HGB - HEMOGLOBIN 14.1 g/dL (12.0-16.0); MEAN CORPUSCULAR HEMOGLOBIN 30.5 pg (27.0-31.0); MEAN CORPUSCULAR HGB CONC 31.6 g/dL (32.0-36.0); MEAN CORPUSCULAR VOLUME 96.5 fL (81.0-99.0); MEAN PLATELET VOLUME 10.8 fL (7.9-10.8); MONOCYTES # (AUTO) 0.5 10^3/uL (0.0-1.0); MONOCYTES % (AUTO) 6.2 %; NEUTROPHILS # (AUTO) 4.7 10^3/uL (1.5-6.6); NEUTROPHILS % (AUTO) 55.8 %; PLT - PLATELET COUNT 345 10^3/uL (130-450); RED BLOOD COUNT 4.62 10^6/uL (4.20-5.40); RED CELL DISTRIBUTION WIDTH 12.2 % (12.0-15.0); WHITE BLOOD COUNT 8.4 x10^3/uL (4.8-10.8)
[2019-07-26 19:17] LABS: ALBUMIN 4.6 g/dL (3.2-5.5); ALBUMIN/GLOBULIN RATIO 1.4 (1.0-2.2); BILIRUBIN,TOTAL 0.4 mg/dL (0.2-1.0); CALCIUM 9.6 mg/dL (8.5-10.3); CREATININE 0.8 mg/dL (0.4-1.0); TOTAL PROTEIN 7.8 g/dL (6.7-8.2)
[2019-07-26 19:42] LABS: HB2 TOTAL 14.9 g/dL; HEMOGLOBIN A1C 0.49 g/dL; HEMOGLOBIN A1C % 5.2 % (4.6-6.2)
== END 2019-07-26 23:59 | disposition home or self-care (01) ==
LOC: LAB.WCP 11:13
PROVIDERS: ATTEND Physician Assistant
DX: Z00.00 Encounter for general adult medical examination without abnormal findings (principal)
CPT/HCPCS: 36415; 80053; 83036; 84443; 85025

== ENCOUNTER 2020-01-27 08:00 | Outpatient (CLI) | payer BC, OTHER | END 2020-01-27 23:59 | disposition home or self-care (01) | LOC: LAB.R 08:00 | PROVIDERS: ATTEND Family Medicine | DX: Z11.59 Encounter for screening for other viral diseases (principal); Z20.828 Contact with and (suspected) exposure to other viral communicable diseases ==

== ENCOUNTER 2020-09-12 07:00 | Outpatient (CLI) | payer BC, OTHER ==
[2020-09-12 12:16] LABS: ALBUMIN 4.5 g/dL (3.2-5.5); ALBUMIN/GLOBULIN RATIO 1.4 (1.0-2.2); BILIRUBIN,TOTAL 0.6 mg/dL (0.2-1.0); CALCIUM 9.2 mg/dL (8.5-10.3); CREATININE 0.8 mg/dL (0.4-1.0); POTASSIUM 3.7 mmol/L (3.5-5.0); TOTAL PROTEIN 7.7 g/dL (6.7-8.2)
[2020-09-12 12:32] LABS: BASOPHILS % (AUTO) 0.7 %; EOSINOPHILS # (AUTO) 0.1 10^3/uL (0.0-0.7); EOSINOPHILS % (AUTO) 2.3 %; HCT - HEMATOCRIT 44.4 % (37.0-47.0); HGB - HEMOGLOBIN 14.1 g/dL (12.0-16.0); LYMPHOCYTES # (AUTO) 2.1 10^3/uL (1.5-3.5); LYMPHOCYTES % (AUTO) 34.3 %; MEAN CORPUSCULAR HEMOGLOBIN 30.9 pg (27.0-31.0); MEAN CORPUSCULAR HGB CONC 31.8 g/dL (32.0-36.0); MEAN CORPUSCULAR VOLUME 97.4 fL (81.0-99.0); MEAN PLATELET VOLUME 10.6 fL (7.9-10.8); MONOCYTES # (AUTO) 0.5 10^3/uL (0.0-1.0); MONOCYTES % (AUTO) 8.7 %; NEUTROPHILS # (AUTO) 3.3 10^3/uL (1.5-6.6); NEUTROPHILS % (AUTO) 53.7 %; PLT - PLATELET COUNT 347 10^3/uL (130-450); RED BLOOD COUNT 4.56 10^6/uL (4.20-5.40); RED CELL DISTRIBUTION WIDTH 12.4 % (12.0-15.0); WHITE BLOOD COUNT 6.1 x10^3/uL (4.8-10.8)
== END 2020-09-12 23:59 | disposition home or self-care (01) ==
LOC: LAB.WCP 07:00
PROVIDERS: ATTEND Surgery
DX: Z01.812 Encounter for preprocedural laboratory examination (principal)
CPT/HCPCS: 36415; 80053; 85025

== ENCOUNTER 2020-09-24 08:00 | Outpatient (CLI) | payer BC, OTHER | END 2020-09-24 23:59 | disposition home or self-care (01) | LOC: LAB.WCP 08:00 | PROVIDERS: ATTEND Nurse Practitioner | DX: Z20.822 Contact with and (suspected) exposure to COVID-19 (principal) ==

== ENCOUNTER 2020-11-29 08:00 | Outpatient (CLI) | payer BC, OTHER | END 2020-11-29 23:59 | disposition home or self-care (01) | LOC: LAB.WCP 08:00 | PROVIDERS: ATTEND Physician Assistant Medical | DX: Z20.822 Contact with and (suspected) exposure to COVID-19 (principal) ==